=== PATIENT | female | born 1970 | race Caucasian/White ===

== ENCOUNTER 2017-01-12 17:50 | Emergency (ER) | payer OTHER ==
--- NOTE | 2017-01-13 08:00 | ED ORDER SUMMARY ---
..... Patient: NEDA KATZ OrderSheet [facility] VisitID: [id number] [place] [address] 46y, F Registration Date/Time: 01/12/2017 ORDER SHEET Weight: 68.0 kg (stated) Allergies: Codeine GENERAL ORDERS: Breathalyzer (18:25 01/12/2017 ASchmuck per protocol) (19:00 PWeiler ER Tech1) EKG - ER Stat (18:46 01/12/2017 ASchmuck per protocol) (18:57 PWeiler ER Tech1) CBC w Diff Urgent (19:22 01/12/2017 Neo Meza) (Ack 19:26 Jeramy) (19:27 ASchmuck) CMP Urgent (19:22 01/12/2017 Neo Meza) (Ack 19:26 Jeramy) (19:27 ASchmuck) UA-Culture if indicated Urgent (19:22 01/12/2017 Neo Meza) (Ack 19:26 Jeramy) (19:43 ASchmuck) Urine Urgent (19:22 01/12/2017 Neo Meza) (Ack 19:27 Jeramy) (19:43 ASchmuck) Urine Drug Screen Urgent (19:22 01/12/2017 Neo Meza) (Ack 19:27 Jeramy) (19:43 ASchmuck) TSH Urgent (19:22 01/12/2017 Neo Meza) (Ack 19:27 Jeramy) (19:27 ASchmuck) MEDICATION ORDERS: Vistaril PO 50 mg (NOW) (19:22 01/12/2017 Neo Meza) (Ack 19:27 Priscila) (19:43 ASchmuck) Nicotine Topical 21 mg (NOW) (20:00 01/12/2017 Neo Meza) (20:06 ASchmuck) Valium PO 5 mg (HIGH ALERT MEDICATION, NOW) (02:17 01/13/2017 Nova Meza) (Ack 2:18 RMarsden R.N.) (2:32 RMarsden R.N.) IV FLUIDS: Zofran IV 4 mg (NOW) (20:49 01/12/2017 Neo Meza) (Ack 21:02 ASchmuck) (21:34 ASchmuck) Haldol IV 5 mg (HIGH ALERT MEDICATION, NOW) (22:09 [facility]2017 [facility] Nova Meza[facility] (22:10 ASchmuck) Haldol IV 5 mg (HIGH ALERT MEDICATION, NOW) (23:23 01/12/2017 [facility] read [facility] to Nova Meza) (23:24 ASchmuck) Benadryl IV 50 mg (NOW) (01:17 01/13/2017 Nova Meza) (Ack 1:19 RMarsden R.N.) (1:28 RMarsden R.N.) Zofran IV 4 mg (NOW) (02:17 01/13/2017 Nova Meza) (Ack 2:18 RMarsden R.N.) (2:31 RMarsden R.N.) Zofran IV 4 mg (NOW) (06:01 01/13/2017 RMarsden R.N. verbal order read back to Nova Meza) (6:02 RMarsden R.N.) ORDER SHEET NOTES: [Electronically signed by Margaret Hutchinson R.N. (09:01/13/2017)] [Electronically signed by Mike Lew Dr. (20:49 01/13/2017)] [Electronically locked/signed by Margaret Hutchinson R.N. (:01/13/2017)]
--- NOTE | 2017-01-13 08:00 | ED ORDER SUMMARY ---
..... Patient: NEDA KATZ OrderSheet [facility] VisitID: [id number] [place] [address] 46y, F Registration Date/Time: 01/12/2017 ORDER SHEET Weight: 68.0 kg (stated) Allergies: Codeine GENERAL ORDERS: Breathalyzer (18:25 01/12/2017 ASchmuck per protocol) (19:00 PWeiler ER Tech1) EKG - ER Stat (18:46 01/12/2017 ASchmuck per protocol) (18:57 PWeiler ER Tech1) CBC w Diff Urgent (19:22 01/12/2017 Neo Meza) (Ack 19:26 Jeramy) (19:27 ASchmuck) CMP Urgent (19:22 01/12/2017 Neo Meza) (Ack 19:26 Jeramy) (19:27 ASchmuck) UA-Culture if indicated Urgent (19:22 01/12/2017 Neo Meza) (Ack 19:26 Jeramy) (19:43 ASchmuck) Urine Urgent (19:22 01/12/2017 Neo Meza) (Ack 19:27 Jeramy) (19:43 ASchmuck) Urine Drug Screen Urgent (19:22 01/12/2017 Neo Meza) (Ack 19:27 Jeramy) (19:43 ASchmuck) TSH Urgent (19:22 01/12/2017 Neo Meza) (Ack 19:27 Jeramy) (19:27 ASchmuck) MEDICATION ORDERS: Vistaril PO 50 mg (NOW) (19:22 01/12/2017 Neo Meza) (Ack 19:27 Priscila) (19:43 ASchmuck) Nicotine Topical 21 mg (NOW) (20:00 01/12/2017 Neo Meza) (20:06 ASchmuck) Valium PO 5 mg (HIGH ALERT MEDICATION, NOW) (02:17 01/13/2017 Nova Meza) (Ack 2:18 RMarsden R.N.) (2:32 RMarsden R.N.) IV FLUIDS: Zofran IV 4 mg (NOW) (20:49 01/12/2017 Neo Meza) (Ack 21:02 ASchmuck) (21:34 ASchmuck) Haldol IV 5 mg (HIGH ALERT MEDICATION, NOW) (22:09 [facility]/12/2017 [facility] [place] read [facility] to Nova Meza[facility] (22:10 ASchmuck) Haldol IV 5 mg (HIGH ALERT MEDICATION, NOW) (23:23 01/12/2017 [facility] [place] [facility] read back to Nova Meza) (23:24 ASchmuck) Benadryl IV 50 mg (NOW) (01:17 01/13/2017 Nova Meza) (Ack 1:19 RMarsden R.N.) (1:28 RMarsden R.N.) Zofran IV 4 mg (NOW) (02:17 01/13/2017 Nova Meza) (Ack 2:18 RMarsden R.N.) (2:31 RMarsden R.N.) Zofran IV 4 mg (NOW) (06:01 01/13/2017 RMarsden R.N. verbal order read back to Nova Meza) (6:02 RMarsden R.N.) ORDER SHEET NOTES: [Electronically signed by Margaret Hutchinson R.N. (09:01/13/2017)] [Electronically signed by Mike Lew Dr. (20:49 01/13/2017)] [Electronically locked/signed by Margaret Hutchinson R.N. (:01/13/2017)]
--- NOTE | 2017-01-13 08:00 | ED CLINICAL REPORT ---
Clinical Report - Physicians/Mid Levels [facility] [address] [place] [address] 01/12/2017 17:51 [id number] Time Seen: 19:16; initial patient contact. Arrived- By private vehicle. Historian- patient. HISTORY OF PRESENT ILLNESS Chief Complaint: INTOXICATED. Wants to stop drinking. Symptoms started today. Substances abused: Last drink just prior to arrival. The patient has had nausea and suicidal thoughts and been agitated and depressed. No vomiting, abdominal pain, tremors, seizure or delusions. No hallucinations. Not confused or paranoid. The symptoms are described as moderate. No injuries noted. Similar symptoms previously: Many times. Recent medical care: Not recently seen/assessed. REVIEW OF SYSTEMS No headache, dizziness, chest pain or palpitations. All systems otherwise negative, except as recorded above. PAST HISTORY Suicidal Ideation. Depression. Anxiety. Alcoholic Liver Disease. Alcohol Intoxication. ADDITIONAL SURGERIES: Appendectomy. Hernia Repair. Tubal Ligation. SOCIAL HISTORY Current every day smoker. Alcohol use. Patient is a longstanding alcoholic. ADDITIONAL NOTES The nursing notes have been reviewed. PHYSICAL EXAM Vital Signs: 01/12/2017 18:24 BP: 140/75. HR: 101. RR: 26. O2 saturation: 94%. Temp: 98.9 F. Pain level now: 0/10. Have been reviewed. Hypertensive. Tachycardic. Tachypneic. Temperature normal. Oxygen saturation low. Appearance: Alert. The patient's speech is slurred and odor of alcohol is present. Head: Head atraumatic. ENT: Airway intact. Moist mucous membranes. CVS: Tachycardia. Heart sounds normal. Rhythm normal. Respiratory: No respiratory distress. Breath sounds normal. Abdomen: Soft and nontender. No organomegaly. Skin: Skin warm and dry. Normal skin color. No rash. Extremities: No lower extremity edema. Neuro: Alert. Oriented X 3. Mood/affect normal. Speech normal. LABS, X-RAYS, AND EKG Laboratory Tests: UA-Culture if indicated: (LORENA: 01/12/2017 19:41) ( MsgRcvd 01/12/2017 20:29) Final results Test Result Flag Units (Reference) URINE COLOR YELLOW URINE APPEARANCE SL CLOUDY URINE GLUCOSE NEGATIVE (NEGATIVE) URINE BILIRUBIN NEGATIVE (NEGATIVE) URINE KETONE NEGATIVE (NEGATIVE) URINE SPECIFIC GRAVITY 1.010 (1.010-1.030) URINE PH 7.5 (5.0-8.0) URINE PROTEIN NEGATIVE (NEGATIVE) URINE UROBILINOGEN 0.2 EU/dL (0.2-1.0) URINE NITRITE NEGATIVE (NEGATIVE) URINE BLOOD NEGATIVE (NEGATIVE) URINE LEUK ESTERASE NEGATIVE (NEGATIVE) URINE RBC RARE rbc/hpf (0-1) URINE WBC 1-3 wbc/hpf (0-1) URINE EPITHELIAL CELLS 1-3 EPI/hpf (0-5) URINE BACTERIA MANY (4+) (NONE SEEN) URINE COMMENT CULTURE INDICATED URINE CULTURES ARE SET-UP BASED ON THE FOLLOWING CRITERIA:POSITIVE NITRITEPOSITIVE LEUKOCYTE ESTERASEGREATER THAN 10 WHITE BLOOD CELLSMODERATE (2+) OR GREATER BACTERIA Urine: (LORENA: 01/12/2017 19:41) ( [facility] 01/12/2017 20:22) Final results Test Result Flag Units (Reference) URINE NEGATIVE CBC w Diff: (LORENA: 01/12/2017 18:11) ( [facility] 01/12/2017 20:01) Final results Test Result Flag Units (Reference) WHITE BLOOD COUNT 5.2 K/uL (4.5-11.5) RED BLOOD COUNT 4.76 M/uL (4.00-5.20) HEMOGLOBIN 14.9 gm/dL (12.0-16.0) HEMATOCRIT 44.1 % (36.0-46.0) MEAN CELL VOLUME 93 fL (80-100) MEAN CORPUSCULAR HGB 31 pg (26-34) MEAN CORPUSCULAR HGB CONC 34 g/dL (31-37) RED CELL DISTRIBUTION WIDTH 18.2 H % (11.6-14.8) PLATELET COUNT 252 K/uL (150-400) NEUTROPHIL % 40.6 L % (50-75) LYMPH % 43.5 H % (25-40) MONO % 13.2 % (3-14) EOSINOPHIL % 1.2 % (0-4) BASOPHIL % 1.5 % (0-2) Urine Drug Screen: (LORENA: 01/12/2017 19:41) ( MsgRcvd 01/12/2017 20:22) Final results Test Result Flag Units (Reference) AMPHETAMINE/METHAMPHETAMINE NEGATIVE (NEGATIVE) BARBITURATE NEGATIVE (NEGATIVE) BENZODIAZEPINE NEGATIVE (NEGATIVE) CANNABINOID NEGATIVE (NEGATIVE) COCAINE NEGATIVE (NEGATIVE) ECSTASY NEGATIVE (NEGATIVE) METHADONE NEGATIVE (NEGATIVE) OPIATE NEGATIVE (NEGATIVE) The urine drug screen is a qualitative screening test fordrug overdose and abuse. All screen results should beconsidered as presumptive.Drugs screened for are as follows:BenzodiazepinesCocaineAmphetamines/MetamphetaminesTHC (Tetrahydrocannabinol)OpiatesBarbituratesEcstasyMethadonePositive results are unconfirmed. For confirmation, notifythe lab for the specimen to be sent to the reference lab.All confirmations must be performed by a differentmethodology.The ingestion of natural herbal and plant productscontaining Ephedra/Ephedra metabolites can produce in urineone or more substances capable of cross reacting withamphetamine/methamphetamine immunoassays. These testsprovide a preliminary result only. A more specificalternative chemical method must be used to obtain aconfirmed analytical result. CMP: (LORENA: 01/12/2017 18:11) ( MsgRcvd 01/12/2017 20:22) Final results Test Result Flag Units (Reference) GLUCOSE 158 H mg/dL (70-110) BUN 8 mg/dL (7-18) CREATININE 1.0 mg/dL (0.6-1.3) Estimated GFR >60 mL/min Estimated GFR- >60 mL/min Note: Persistent reduction over 3 months in eGFR<60 mL/min/1.73 m2 defines CKD. Patients with eGFR values>=60 mL/min/1.73 m2 may also have CKD if evidence ofpersistent proteinuria. Additional information may be foundat www.kidney.org. SODIUM 146 H mmol/L (136-145) POTASSIUM 4.1 mmol/L (3.5-5.1) CHLORIDE 106 mmol/L (98-107) CARBON DIOXIDE 29 mmol/L (21-32) CALCIUM 9.6 mg/dL (8.5-10.1) TOTAL PROTEIN 7.2 g/dL (6.4-8.2) ALBUMIN 3.8 g/dL (3.3-5.0) BILIRUBIN, TOTAL 0.3 mg/dL (0.0-1.0) ALKALINE PHOSPHATASE 114 U/L (46-116) AST (SGOT) 228 H U/L (15-37) ALT (SGPT) 243 H U/L (12-78) THYROID STIMULATING HORMONE 0.929 uIU/mL (0.34-3.74) . PROGRESS AND PROCEDURES Course of Care: 21:40 01/12/17. Case D/W Dr. Freire. Pt w/ passive SI, no plan. Still intoxicated, awaiting EtOH < 100 for PAT. CLINICAL IMPRESSION Alcohol intoxication with alcohol dependence. No alcohol intoxication with delirium. Complicated alcohol intoxication. Acute urinary tract infection with cystitis. Abnormal liver function test: AST/SGOT and ALT/SGPT. INSTRUCTIONS No alcohol. Seek medical help to quit drinking. Your Current Medications: CONTINUE TAKING THE FOLLOWING MEDICATIONS: BuPROPion HCl Oral : 100 mg 3x a day. Prescription Medications: Bactrim DS 800 mg / 160 mg: take 1 tablet orally every 12 hours for 3 days. No refill. Substitution is permissible. Follow-up: Screening today revealed the patient's blood pressure to be in the pre-hypertensive range. The patient should follow up with a primary care provider for blood pressure management. (Electronically signed by Mike Lew Dr. 01/13/2017 20:49)
--- NOTE | 2017-01-13 08:00 | ED NURSING NOTES ---
Clinical Report - Nurses [facility] [address] [place] [address] 01/12/2017 17:51 [id number] TRI[facility] Triage time 18:14 Jan 12 2017. Acuity: LEVEL 3. Chief Complaint: (ETOH Withdrawal). 17:55 01/12/17. Alert. SEPSIS SCREEN: Sepsis Screen. Negative (no infection suspected/documented). NEYDA COMA SCORE: Neyda Coma Scale: 15- eyes open spontaneously (4); best verbal response- oriented x 4 (5); best motor response- obeys commands (6). --18:32 Yen Barragan 18:24 01/12/17. BP: 140/75. HR: 101. RR: 26. O2 saturation: 94% on room air. Temp: 98.9 F (oral). Pain level now: 0/10. --18:32 Yen Barragan. Weight: 68 kg stated. Height/Length: 69 inches Per Patient. BMI: 22.2. --18:31 Yen Barragan. Medications BuPROPion HCl Oral 100 mg, 3x a day. --18:27 Yen Barragan. Medication/allergy information source: the patient. --18:32 Yen Barragan. Allergies Codeine. --18:27 Yen Barragan. History Arrived by private vehicle. Historian: patient. Accompanied by family and daughter. Onset. (2 hours ago). ( Pt reports that she last drank alcohol about 2 hours ago. Denies any hallucinations including visual and auditory. Pt has tried to detox the past two days but is unable to on her own. Denies a history of withdrawal seizures.). Treatment FLOWER CUTTER: (Zofran). PAST MEDICAL HX: Immunizations: status is unknown. Last normal menstrual period was 1 week ago. Has had a tubal ligation. SOCIAL HX: Heavy tobacco smoker (cigarette)- less than 1 pack per day. Alcohol use. (drinks 1/2 of a fifth of vodka daily.). No drug use. NUTRITIONAL RISK ASSESSMENT: The nutritional risk assessment revealed no deficiencies. FUNCTIONAL ASSESSMENT: Functional assessment: no impairments noted. LEARNING NEEDS ASSESSMENT: The learning needs assessment revealed no barriers. FALL RISK ASSESSMENT: Fall risk assessment completed. Risk factors identified include patient impairment of mobility and cognition. Fall interventions initiated. Patient placed on stretcher. Side rails up x2. Brakes on Bed in low position. Family at bedside. Call light in reach of patient. Instructed not to get up without assistance. SKIN INTEGRITY ASSESSMENT: Skin integrity risk assessment completed. No skin integrity risk identified. --18:32 Yen Barragan. PROBLEMS: Suicidal Ideation. Depression. Anxiety. Alcoholic Liver Disease. Alcohol Intoxication. --18:27 Yen Barragan. ADDITIONAL SURGERIES: Appendectomy. Hernia Repair. Tubal Ligation. --18:27 Yen Barragan. Assessment The patient states feels the same. --18:32 Yen Barragan. Interventions ID band on patient. --18:32 Yen Barragan. PHYSICAL ASSESSMENT 18:33 01/12/17. To room via wheelchair. Patient gowned. GENERAL / NEURO / PSYCH: Alert. Oriented X 4. Appears anxious. HEENT: Pupils equal, round and reactive to light. No facial asymmetry noted. Mucous membranes are pink. RESPIRATORY: Respirations not labored. Chest nontender. CVS: Cardiac rhythm: normal sinus rhythm. Capillary refill less than 2 seconds. Pulses within normal limits. GI / : Abdomen soft and nontender. SKIN: Skin intact. Skin is warm and dry. Normal skin turgor. --18:33 Yen Barragan. NURSING PROGRESS NOTES 17:58 01/12/17. The plan of care for this patient has been created. match marker, pulse oximeter and NIBP monitor placed on patient; services program manager- Lead II and V5; monitor alarms on. Patient gowned. Head of bed elevated. Reassurance given. Two patient identifiers checked. Call light placed in reach. Side rails up x 2. Bed placed in lowest position. Brakes of bed on. Patient ready for evaluation- chart flagged and ED physician and SENIOR SAFETY SUPPORT MANAGER notified. ( Pt given warm blanket.). --18:34 Yen Barragan 18:15 01/12/2017 Site #1 started via IV in the right hand with an 20g angiocath, with aseptic technique and good blood return; one attempt. Blood drawn: rainbow set. Labeled in the presence of the patient and sent to the lab. Saline lock flushed with 10 mL saline. --18:25 Yen Barragan EKG time: (1855). EKG was ordered, performed by a tech and shown to the ED physician. ( Breathalyzer .410). --18:59 Donovan Arreaga, ER Tech1 19:33 01/12/2017 Vistaril (HydrOXYzine Pamoate) PO Tablets 50 mg given. Allergies verified, confirmed 5 rights and sedative warning given to the patient. --19:43 Yen Barragan 19:44 01/12/17. BP: 145/74. HR: 83. RR: 22. O2 saturation: 98% on room air. --20:07 Yen Barragan ( Patient given second warm blanket and ice pack per request. Pt offered sandwich or juice, requested ice chips which were provided.). --20:08 Yen Barragan 19:47 01/12/17. Patient ID band checked for patient name and birthdate: patient confirmed. Instructions provided to collect clean catch urine and patient verbalized understanding. Clean catch urine collected with return of yellow-colored cloudy urine; sample sent to lab. Specimen labeled in the presence of the patient. --20:26 Yen Barragan 19:47 01/12/17. ( Pt ambulated to with RN, ambulated well.). --20:27 Yen Barragan 20:01 01/12/2017 NICOTINE Topical Patch/Pad 21 mg. Applied to the left upper back. Allergies verified and confirmed 5 rights. --20:06 Yen Barragan 20:55 01/12/17. ( Pt approaches nurses station, "you're my nurse, right? I need you to come in the room so I can talk to you." Patient verbalized frustration of being in the ER for three hours without fluids running and to just "admit me or something. I'm not stupid, I have an alcohol level, but I'm not intoxicated. Go get the doctor to come in here...if he doesn't come in here than I'm going out there to talk to him." Patient was informed that the ERMD will order fluids based on lab work, patient continues to speak loudly and pace around the room. ERMD notified of patient's concern, per patient's request. ERMD went to patient room.). --21:01 Yen Barragan 21:19 01/12/2017 Zofran (Ondansetron HCl) IVP 4 mg given over 1 minute(s) via site #1. Allergies verified and confirmed 5 rights. IV patency established. IV site checked: no pain, redness, or swelling. IV flushed thoroughly pre- and post-medication administration. IVP given by RN. --21:34 Yen Barragan 22:01/12/2017 HALDOL (Haloperidol Lactate) IVP 5 mg given over 1 minute(s) via site #1. Allergies verified, confirmed 5 rights and sedative warning given to the patient. IV patency established. IV site checked: no pain, redness, or swelling. IV flushed thoroughly pre- and post-medication administration. IVP given by RN. --22:10 Yen Barragan 21:01/12/17. BP: 145/75. HR: 101. RR: 16. O2 saturation: 97% on room air. --22:33 Yen Barragan 22:33 01/12/17. BP: 113/63. HR: 83. RR: 18. O2 saturation: 96% on room air. Pain level now: 0/10. --22:34 Yen Barragan 21:16 01/12/17. ( Patient found with clothes on, in ED, away from room. Pt walked back to room by RN. Patient moved to room by nurses' station and placed in flight risk gown. Warm blankets reapplied.). --22:36 Yen Barragan 22:06 01/12/17. ( Patient given more water and ice per request.). --22:36 Yen Barragan 22:37 01/12/17. Reassessment after medication administered. She reports no complaints and she is calm and resting quietly. Overall patient status is improved. RESPIRATORY: No respiratory distress. Breath sounds normal. CVS: Normal sinus rhythm noted. SKIN: Skin is warm and dry. Skin color within normal limits. --22:37 Yen Barragan 23:24 01/12/2017 HALDOL (Haloperidol Lactate) IVP 5 mg given over 1 minute(s) via site #1. Allergies verified, confirmed 5 rights and sedative warning given to the patient. IV patency established. IV site checked: no pain, redness, or swelling. IV flushed thoroughly pre- and post-medication administration. IVP given by RN. --23:24 Yen Barragan ( Pt given Gatorade.). --23:24 Yen Barragan 00:28 01/13/17. BP: 107/54. HR: 86. O2 saturation: 96% on room air. --00:28 Yen Barragan Care transferred and report received (from LEELA Barlow). --01:12 Soniya Ireland R.N. 01:19 01/13/17. ( Breathalyzer 0.223 perfprmed by LEELA Barlow). --01:19 Soniya Ireland R.N. 01:23 01/13/2017 Benadryl (DiphenhydrAMINE HCl) IVP 50 mg given over 2 minute(s) via site #1. Allergies verified, confirmed 5 rights and sedative warning given to the patient. IV patency established. IV site checked: no pain, redness, or swelling. IV flushed thoroughly pre- and post-medication administration. IVP given by RN. --01:28 Soniya Ireland R.N. ( patient given water). --01:28 Soniya Ireland R.N. The patient is resting quietly. RESPIRATORY: No respiratory distress. CVS: Normal sinus rhythm noted. SKIN: Skin is warm and dry. Skin color within normal limits. ( Talked to patient about motivations for alcohol recovery for about 15 minutes. Patient given extra blankets. She reports no additional needs at this time.). --01:57 Soniya Ireland R.N. match marker, pulse oximeter and NIBP monitor placed on patient. --01:57 Soniya Ireland R.N. 02:05 01/13/2017 Benadryl IVP Response: no adverse reaction the patient feels the same. (patient reports fatigue but states she is too anxious to sleep). 01/13/2017 02:05 BP: 112/76. HR: 84. RR: 19. O2 saturation: 96%. --03:00 Soniya Ireland R.N. 02:22 01/13/2017 Valium (Diazepam) PO Tablets 5 mg given. Allergies verified, confirmed 5 rights and sedative warning given to the patient. --02:32 Soniya Ireland R.N. 02:31 01/13/2017 Zofran (Ondansetron HCl) IVP 4 mg given over 2 minute(s) via site #1. Allergies verified and confirmed 5 rights. IV patency established. IV site checked: no pain, redness, or swelling. IV flushed thoroughly pre- and post-medication administration. IVP given by RN. --02:31 Soniya Ireland R.N. 02:16. ( Patient reported anxiety and nausea with vomiting. ED MD notified, orders given). --02:33 Soniya Ireland R.N. 02:56 01/13/17. Reassessment after medication administered. She is sleeping and has had no adverse reaction. RESPIRATORY: No respiratory distress. CVS: Normal sinus rhythm noted. SKIN: Skin color within normal limits. --02:56 Soniya Ireland R.N. 02:59 01/13/2017 Valium PO Response: no adverse reaction. 01/13/2017 02:57 BP: 110/67. HR: 75. RR: 22. O2 saturation: 93%. FLACC pain scale: 0/10. --02:59 Soniya Ireland R.N. 04:21 01/13/17. The patient is sleeping. RESPIRATORY: No respiratory distress. CVS: Normal sinus rhythm noted. SKIN: Skin color within normal limits. --04:21 Soniya Ireland R.N. 05:12 01/13/17. ( Patient resting quietly. She reports feeling anxious and shaky.). --05:12 Soniya Ireland R.N. RESPIRATORY: No respiratory distress. CVS: Normal sinus rhythm noted. SKIN: Skin color within normal limits. --05:12 Soniya Ireland R.N. 05:57 01/13/2017 Zofran (Ondansetron HCl) IVP 4 mg given over 2 minute(s) via site #1. Allergies verified and confirmed 5 rights. IV patency established. IV site checked: no pain, redness, or swelling. IV flushed thoroughly pre- and post-medication administration. IVP given by RN. --06:02 Soniya Ireland R.N. 05:45. ( ED MD notified that patient feels nauseous and shaky. Orders given. Breathalyzer (0.105)). --06:04 Soniya Ireland R.N. 06:31 01/13/17. Reassessment after medication administered. She has had no adverse reaction. Overall patient status is improved- she states feels better. RESPIRATORY: No respiratory distress. CVS: Normal sinus rhythm noted. SKIN: Skin is warm and dry. Skin color within normal limits. --06:31 Soniya Ireland R.N. Care transferred and report given (to LEELA Robles). --07:10 Soniya Ireland R.N. Care transferred and report received (Assumed care). --07:13 Margaret Hutchinson R.N. late entry - 08:50. ( Pt assisted to the restroom). --09:11 Margaret Hutchinson R.N. DISPOSITION / DISCHARGE 09:18 01/13/2017 Site #1 removed upon discharge. Pressure dressing and bandaid applied. --09:23 Margaret Hutchinson R.N. Departure time: 09:24. Condition at departure: improved. Discharge instructions provided and reviewed with the patient. Reviewed medication(s) side effects, precautions, dosing and course information. Prescription(s) given to the patient. Reviewed need to stop smoking. Patient verbalized understanding. Written instructions provided in Tunisian. ( [id number]). The patient was discharged by the physician. She was discharged home and accompanied by spouse. She left the Emergency Department ambulatory and via private vehicle. Spouse driving. --09:24 Margaret Hutchinson R.N. 09:08 01/13/17. BP: 138/72. HR: 98. RR: 18. O2 saturation: 96%. Temp: 97.8 F. Pain level now: 09/11. --09:24 Margaret Hutchinson R.N. Locked/Released at 01/13/2017 9:26 by Margaret Hutchinson R.N.
--- NOTE | 2017-01-13 20:49 | ED MAR SUMMARY ---
..... Medication Administration Record [facility] [address] [place] [address] Patient: NEDA KATZ Visit ID: [id number] 46y, F Weight: 68.0 kg Height/Length: 69 in BMI: 22.2 ALLERGIES: Codeine Given 19:33 01/12/2017 Yen Barragan, Medication Administered: VISTARIL [PO] (HYDROXYZINE PAMOATE), Dose: 50 mg Tablets PO. Medication Ordered: Vistaril PO 50 mg (NOW). Given 20:01/12/2017 Yen Barragan, Medication Administered: NICOTINE [TOPICAL], Dose: 21 mg Patch/Pad Topical. Medication Ordered: Nicotine Topical 21 mg (NOW). Given :01/12/2017 Yen Barragan, Medication Administered: ZOFRAN [IVP] (ONDANSETRON HCL), Dose: 4 mg IVP over 1 minute(s), Site: #1 right hand. Medication Ordered: Zofran IV 4 mg (NOW). Given :01/12/2017 Yen Barragan, Medication Administered: HALDOL [IVP] (HALOPERIDOL LACTATE), Dose: 5 mg IVP over 1 minute(s), Site: #1 right hand. Medication Ordered: Haldol IV 5 mg (HIGH ALERT MEDICATION, NOW). Given :01/12/2017 Yen Barragan, Medication Administered: HALDOL [IVP] (HALOPERIDOL LACTATE), Dose: 5 mg IVP over 1 minute(s), Site: #1 right hand. Medication Ordered: Haldol IV 5 mg (HIGH ALERT MEDICATION, NOW). Given :01/13/2017 Soniya Ireland, RHimaN. Medication Administered: BENADRYL [IVP] (DIPHENHYDRAMINE HCL), Dose: 50 mg IVP over 2 minute(s), Site: #1 right hand. Medication Ordered: Benadryl IV 50 mg (NOW). Given 02:01/13/2017 Soniya Ireland RHimaN. Medication Administered: VALIUM [PO] (DIAZEPAM), Dose: 5 mg Tablets PO. Medication Ordered: Valium PO 5 mg (HIGH ALERT MEDICATION, NOW). Given 02:31 01/13/2017 Soniya Ireland R.N. Medication Administered: ZOFRAN [IVP] (ONDANSETRON HCL), Dose: 4 mg IVP over 2 minute(s), Site: #1 right hand. Medication Ordered: Zofran IV 4 mg (NOW). Given 05:57 01/13/2017 Soniya Ireland RHimaN. Medication Administered: ZOFRAN [IVP] (ONDANSETRON HCL), Dose: 4 mg IVP over 2 minute(s), Site: #1 right hand. Medication Ordered: Zofran IV 4 mg (NOW).
--- NOTE | 2017-01-13 20:49 | ED DISCHARGE INSTRUCTIONS ---
Patient: NEDA KATZ General Instructions [facility] VisitID: [id number] [place] [address] 46y, F Registration Date/Time: 01/12/2017 Alcohol intoxication with alcohol dependence. No alcohol intoxication with delirium. Complicated alcohol intoxication. Acute urinary tract infection with cystitis. Abnormal liver function test: AST/SGOT and ALT/SGPT. INSTRUCTIONS No alcohol. Seek medical help to quit drinking. Your Current Medications: CONTINUE TAKING THE FOLLOWING MEDICATIONS: BuPROPion HCl Oral : 100 mg 3x a day. Prescription Medications: Bactrim DS 800 mg / 160 mg: take 1 tablet orally every 12 hours for 3 days. No refill. Substitution is permissible. Follow-up: Screening today revealed the patient's blood pressure to be in the pre-hypertensive range. The patient should follow up with a primary care provider for blood pressure management. ADDITIONAL INFORMATION Bladder Infection,Female (Adult) A bladder infection ("cystitis" or "UTI") usually causes a constant urge to urinate and a burning when passing urine. Urine may be cloudy, smelly or dark. There may be pain in the lower abdomen. A bladder infection occurs when bacteria from the vaginal area enter the bladder opening (urethra). This can occur from sexual intercourse, wearing tight clothing, dehydration and other factors. Home Care: Drink lots of fluids (at least 6-8 glasses a day, unless you must restrict fluids for other medical reasons). This will force the medicine into your urinary system and flush the bacteria out of your body. Avoid sexual intercourse until your symptoms are gone. Avoid caffeine, alcohol and spicy foods. These can irritate the bladder. A bladder infection is treated with antibiotics. You may also be given Pyridium (generic = phenazopyridine) to reduce the burning sensation. This medicine will cause your urine to become a bright orange color. The orange urine may stain clothing. You may wear a pad or panty-liner to protect clothing. Preventing Future Infections: Always wipe from front to back after a bowel movement. Keep the genital area clean and dry. Drink plenty of fluids each day to avoid dehydration. Both sexual partners should wash before intercourse. Urinate right after intercourse to flush out the bladder. Wear cotton underwear and cotton-lined panty hose; avoid tight-fitting pants. If you are on control pills and are having frequent bladder infections, discuss with your doctor. Follow Up: Return to this facility or see your doctor if ALL symptoms are not gone after three days of treatment. Get Prompt Medical Attention if any of the following occur: Fever of 100.4F (38C) or higher, or as directed by your healthcare provider No improvement by the third day of treatment Increasing back or abdominal pain Repeated vomiting; unable to keep medicine down Weakness, dizziness or fainting Vaginal discharge Pain, redness or swelling in the labia (outer vaginal area) Sulfamethoxazole, Trimethoprim Oral tablet What is this medicine? SULFAMETHOXAZOLE; TRIMETHOPRIM or SMX-TMP (suhl fuh meth OK kerry zohl; trye METH oh prim) is a combination of a sulfonamide antibiotic and a second antibiotic, trimethoprim. It is used to treat or prevent certain kinds of bacterial infections. It will not work for colds, flu, or other viral infections. How should I use this medicine? Take this medicine by mouth with a full glass of water. Follow the directions on the prescription label. Take your medicine at regular intervals. Do not take it more often than directed. Do not skip doses or stop your medicine early. Talk to your windows systems admin regarding the use of this medicine in children. Special care may be needed. This medicine has been used in children as young as 2 months of age. What side effects may I notice from receiving this medicine? Side effects that you should report to your doctor or health care asst as soon as possible: allergic reactions like skin rash or hives, swelling of the face, lips, or tongue breathing problems fever or chills, sore throat irregular heartbeat, chest pain joint or muscle pain pain or difficulty passing urine red pinpoint spots on skin redness, blistering, peeling or loosening of the skin, including inside the mouth unusual bleeding or bruising unusually weak or tired yellowing of the eyes or skin Side effects that usually do not require medical attention (report to your doctor or health care asst if they continue or are bothersome): diarrhea dizziness headache loss of appetite nausea, vomiting nervousness What may interact with this medicine? Do not take this medicine with any of the following medications: aminobenzoate potassium dofetilide metronidazole This medicine may also interact with the following medications: MANDO inhibitors like benazepril, enalapril, lisinopril, and ramipril cyclosporine digoxin diuretics indomethacin medicines for diabetes methenamine methotrexate phenytoin potassium supplements pyrimethamine sulfinpyrazone tricyclic antidepressants warfarin What if I miss a dose? If you miss a dose, take it as soon as you can. If it is almost time for your next dose, take only that dose. Do not take double or extra doses. Where should I keep my medicine? Keep out of the reach of children. Store at room temperature between 20 to 25 degrees C (68 to 77 degrees F). Protect from light. Throw away any unused medicine after the expiration date. What should I tell my health care provider before I take this medicine? They need to know if you have any of these conditions: anemia asthma being treated with anticonvulsants if you frequently drink alcohol containing drinks kidney disease liver disease low level of folic acid or [id number] dehydrogenase poor nutrition or malabsorption porphyria severe allergies thyroid disorder an unusual or allergic reaction to sulfamethoxazole, trimethoprim, sulfa drugs, other medicines, foods, dyes, or preservatives or trying to get breast-feeding What should I watch for while using this medicine? Tell your doctor or health care asst if your symptoms do not improve. Drink several glasses of water a day to reduce the risk of kidney problems. Do not treat diarrhea with over the counter products. Contact your doctor if you have diarrhea that lasts more than 2 days or if it is severe and watery. This medicine can make you more sensitive to the sun. Keep out of the sun. If you cannot avoid being in the sun, wear protective clothing and use a sunscreen. Do not use sun lamps or tanning beds/booths. You have been given the following additional information: Bladder Infection, Female (Adult) Sulfamethoxazole, Trimethoprim Oral tablet (Electronically signed by Mike Lew Dr. 01/13/2017 20:49)
--- NOTE | 2017-01-13 20:49 | ED DISCHARGE INSTRUCTIONS ---
Patient: NEDA KATZ General Instructions [facility] VisitID: [id number] [place] [address] 46y, F Registration Date/Time: 01/12/2017 Alcohol intoxication with alcohol dependence. No alcohol intoxication with delirium. Complicated alcohol intoxication. Acute urinary tract infection with cystitis. Abnormal liver function test: AST/SGOT and ALT/SGPT. INSTRUCTIONS No alcohol. Seek medical help to quit drinking. Your Current Medications: CONTINUE TAKING THE FOLLOWING MEDICATIONS: BuPROPion HCl Oral : 100 mg 3x a day. Prescription Medications: Bactrim DS 800 mg / 160 mg: take 1 tablet orally every 12 hours for 3 days. No refill. Substitution is permissible. Follow-up: Screening today revealed the patient's blood pressure to be in the pre-hypertensive range. The patient should follow up with a primary care provider for blood pressure management. ADDITIONAL INFORMATION Bladder Infection,Female (Adult) A bladder infection ("cystitis" or "UTI") usually causes a constant urge to urinate and a burning when passing urine. Urine may be cloudy, smelly or dark. There may be pain in the lower abdomen. A bladder infection occurs when bacteria from the vaginal area enter the bladder opening (urethra). This can occur from sexual intercourse, wearing tight clothing, dehydration and other factors. Home Care: Drink lots of fluids (at least 6-8 glasses a day, unless you must restrict fluids for other medical reasons). This will force the medicine into your urinary system and flush the bacteria out of your body. Avoid sexual intercourse until your symptoms are gone. Avoid caffeine, alcohol and spicy foods. These can irritate the bladder. A bladder infection is treated with antibiotics. You may also be given Pyridium (generic = phenazopyridine) to reduce the burning sensation. This medicine will cause your urine to become a bright orange color. The orange urine may stain clothing. You may wear a pad or panty-liner to protect clothing. Preventing Future Infections: Always wipe from front to back after a bowel movement. Keep the genital area clean and dry. Drink plenty of fluids each day to avoid dehydration. Both sexual partners should wash before intercourse. Urinate right after intercourse to flush out the bladder. Wear cotton underwear and cotton-lined panty hose; avoid tight-fitting pants. If you are on control pills and are having frequent bladder infections, discuss with your doctor. Follow Up: Return to this facility or see your doctor if ALL symptoms are not gone after three days of treatment. Get Prompt Medical Attention if any of the following occur: Fever of 100.4F (38C) or higher, or as directed by your healthcare provider No improvement by the third day of treatment Increasing back or abdominal pain Repeated vomiting; unable to keep medicine down Weakness, dizziness or fainting Vaginal discharge Pain, redness or swelling in the labia (outer vaginal area) Sulfamethoxazole, Trimethoprim Oral tablet What is this medicine? SULFAMETHOXAZOLE; TRIMETHOPRIM or SMX-TMP (suhl fuh meth OK kerry zohl; trye METH oh prim) is a combination of a sulfonamide antibiotic and a second antibiotic, trimethoprim. It is used to treat or prevent certain kinds of bacterial infections. It will not work for colds, flu, or other viral infections. How should I use this medicine? Take this medicine by mouth with a full glass of water. Follow the directions on the prescription label. Take your medicine at regular intervals. Do not take it more often than directed. Do not skip doses or stop your medicine early. Talk to your maintenance planner regarding the use of this medicine in children. Special care may be needed. This medicine has been used in children as young as 2 months of age. What side effects may I notice from receiving this medicine? Side effects that you should report to your doctor or health director career services as soon as possible: allergic reactions like skin rash or hives, swelling of the face, lips, or tongue breathing problems fever or chills, sore throat irregular heartbeat, chest pain joint or muscle pain pain or difficulty passing urine red pinpoint spots on skin redness, blistering, peeling or loosening of the skin, including inside the mouth unusual bleeding or bruising unusually weak or tired yellowing of the eyes or skin Side effects that usually do not require medical attention (report to your doctor or health director career services if they continue or are bothersome): diarrhea dizziness headache loss of appetite nausea, vomiting nervousness What may interact with this medicine? Do not take this medicine with any of the following medications: aminobenzoate potassium dofetilide metronidazole This medicine may also interact with the following medications: MANDO inhibitors like benazepril, enalapril, lisinopril, and ramipril cyclosporine digoxin diuretics indomethacin medicines for diabetes methenamine methotrexate phenytoin potassium supplements pyrimethamine sulfinpyrazone tricyclic antidepressants warfarin What if I miss a dose? If you miss a dose, take it as soon as you can. If it is almost time for your next dose, take only that dose. Do not take double or extra doses. Where should I keep my medicine? Keep out of the reach of children. Store at room temperature between 20 to 25 degrees C (68 to 77 degrees F). Protect from light. Throw away any unused medicine after the expiration date. What should I tell my health care provider before I take this medicine? They need to know if you have any of these conditions: anemia asthma being treated with anticonvulsants if you frequently drink alcohol containing drinks kidney disease liver disease low level of folic acid or zxisgai-[id number] dehydrogenase poor nutrition or malabsorption porphyria severe allergies thyroid disorder an unusual or allergic reaction to sulfamethoxazole, trimethoprim, sulfa drugs, other medicines, foods, dyes, or preservatives or trying to get breast-feeding What should I watch for while using this medicine? Tell your doctor or health director career services if your symptoms do not improve. Drink several glasses of water a day to reduce the risk of kidney problems. Do not treat diarrhea with over the counter products. Contact your doctor if you have diarrhea that lasts more than 2 days or if it is severe and watery. This medicine can make you more sensitive to the sun. Keep out of the sun. If you cannot avoid being in the sun, wear protective clothing and use a sunscreen. Do not use sun lamps or tanning beds/booths. You have been given the following additional information: Bladder Infection, Female (Adult) Sulfamethoxazole, Trimethoprim Oral tablet (Electronically signed by Mike Lew Dr. 01/13/2017 20:49)
--- NOTE | 2017-01-13 20:49 | ED MAR SUMMARY ---
..... Medication Administration Record [facility] [address] [place] [address] Patient: NEDA KATZ Visit ID: [id number] 46y, F Weight: 68.0 kg Height/Length: 69 in BMI: 22.2 ALLERGIES: Codeine Given 19:33 01/12/2017 Yen Barragan, Medication Administered: VISTARIL [PO] (HYDROXYZINE PAMOATE), Dose: 50 mg Tablets PO. Medication Ordered: Vistaril PO 50 mg (NOW). Given 20:01/12/2017 Yen Barragan, Medication Administered: NICOTINE [TOPICAL], Dose: 21 mg Patch/Pad Topical. Medication Ordered: Nicotine Topical 21 mg (NOW). Given :01/12/2017 Yen Barragan, Medication Administered: ZOFRAN [IVP] (ONDANSETRON HCL), Dose: 4 mg IVP over 1 minute(s), Site: #1 right hand. Medication Ordered: Zofran IV 4 mg (NOW). Given :01/12/2017 Yen Barragan, Medication Administered: HALDOL [IVP] (HALOPERIDOL LACTATE), Dose: 5 mg IVP over 1 minute(s), Site: #1 right hand. Medication Ordered: Haldol IV 5 mg (HIGH ALERT MEDICATION, NOW). Given :01/12/2017 Yen Barragan, Medication Administered: HALDOL [IVP] (HALOPERIDOL LACTATE), Dose: 5 mg IVP over 1 minute(s), Site: #1 right hand. Medication Ordered: Haldol IV 5 mg (HIGH ALERT MEDICATION, NOW). Given :01/13/2017 Soniya Ireland, RHimaN. Medication Administered: BENADRYL [IVP] (DIPHENHYDRAMINE HCL), Dose: 50 mg IVP over 2 minute(s), Site: #1 right hand. Medication Ordered: Benadryl IV 50 mg (NOW). Given 02:01/13/2017 Soniya Irleand RHimaN. Medication Administered: VALIUM [PO] (DIAZEPAM), Dose: 5 mg Tablets PO. Medication Ordered: Valium PO 5 mg (HIGH ALERT MEDICATION, NOW). Given 02:31 01/13/2017 Soniya Ireland R.N. Medication Administered: ZOFRAN [IVP] (ONDANSETRON HCL), Dose: 4 mg IVP over 2 minute(s), Site: #1 right hand. Medication Ordered: Zofran IV 4 mg (NOW). Given 05:57 01/13/2017 Soniya Ireland RHimaN. Medication Administered: ZOFRAN [IVP] (ONDANSETRON HCL), Dose: 4 mg IVP over 2 minute(s), Site: #1 right hand. Medication Ordered: Zofran IV 4 mg (NOW).
--- NOTE | 2017-01-13 20:49 | ED MED RECONCILIATION SUMMARY ---
Patient: NEDA KATZ Medication Reconciliation Report [facility] VisitID: [id number] [address] [place] [address] 46y, F Registration Date/Time: 01/12/2017 Weight: 68.0 kg Height/Length: 69 in. BMI: 22.2 ALLERGIES: Codeine The patient's Home Medications are listed below: CONTINUE TAKING THE FOLLOWING MEDICATIONS: BuPROPion HCl Oral 100 mg, 3x a day The source(s) of the original Home Medication information: patient The following Medications were given to the patient in the Emergency Department: Vistaril [PO] PO 50 mg, administered: 01/12/2017 7:33:00 PM NICOTINE [TOPICAL] Topical 21 mg, administered: 01/12/2017 8:01:00 PM Zofran [IVP] IVP 4 mg, administered: 01/12/2017 9:19:00 PM HALDOL [IVP] IVP 5 mg, administered: 01/12/2017 10:10:00 PM HALDOL [IVP] IVP 5 mg, administered: 01/12/2017 11:24:00 PM Benadryl [IVP] IVP 50 mg, administered: 01/13/2017 1:23:00 AM Zofran [IVP] IVP 4 mg, administered: 01/13/2017 2:31:00 AM Valium [PO] PO 5 mg, administered: 01/13/2017 2:22:00 AM Zofran [IVP] IVP 4 mg, administered: 01/13/2017 5:57:00 AM The following Medications were prescribed to the patient: Bactrim DS 800 mg / 160 mg: take 1 tablet orally every 12 hours for 3 days. No refill. Substitution is permissible. -- Mike Lew Dr.
--- NOTE | 2017-01-13 20:49 | ED MED RECONCILIATION SUMMARY ---
Patient: NEDA KATZ Medication Reconciliation Report [facility] VisitID: [id number] [place] [address] 46y, F Registration Date/Time: 01/12/2017 Weight: 68.0 kg Height/Length: 69 in. BMI: 22.2 ALLERGIES: Codeine The patient's Home Medications are listed below: CONTINUE TAKING THE FOLLOWING MEDICATIONS: BuPROPion HCl Oral 100 mg, 3x a day The source(s) of the original Home Medication information: patient The following Medications were given to the patient in the Emergency Department: Vistaril [PO] PO 50 mg, administered: 01/12/2017 7:33:00 PM NICOTINE [TOPICAL] Topical 21 mg, administered: 01/12/2017 8:01:00 PM Zofran [IVP] IVP 4 mg, administered: 01/12/2017 9:19:00 PM HALDOL [IVP] IVP 5 mg, administered: 01/12/2017 10:10:00 PM HALDOL [IVP] IVP 5 mg, administered: 01/12/2017 11:24:00 PM Benadryl [IVP] IVP 50 mg, administered: 01/13/2017 1:23:00 AM Zofran [IVP] IVP 4 mg, administered: 01/13/2017 2:31:00 AM Valium [PO] PO 5 mg, administered: 01/13/2017 2:22:00 AM Zofran [IVP] IVP 4 mg, administered: 01/13/2017 5:57:00 AM The following Medications were prescribed to the patient: Bactrim DS 800 mg / 160 mg: take 1 tablet orally every 12 hours for 3 days. No refill. Substitution is permissible. -- Mike Lew Dr.
== END 2017-01-13 09:20 | disposition home or self-care (01) ==
LOC: ED SRH 17:50
DX: F10.229 Alcohol dependence with intoxication, unspecified (principal); R94.5 Abnormal results of liver function studies; N30.90 Cystitis, unspecified without hematuria; F17.210 Nicotine dependence, cigarettes, uncomplicated; Z88.5 Allergy status to narcotic agent; Z79.899 Other long term (current) drug therapy
CPT/HCPCS: 90004; 90100; 90469; 92760; 92761; 92762; 92763; 92764; 92765; 92766; 92767; 93070; 93140; 95059